=== PATIENT | female | born 1955 | race African-American/Black ===

== ENCOUNTER 2024-06-05 18:43 | Inpatient (IN) | payer MEDICARE, OTHER ==
[~2024-06-05] VITALS: Ht 167.6 cm; Wt 79.4 kg
[2024-06-05] MEDS ORDERED: ASPIRIN 81MG TABLET PO ONE (19:00)
[2024-06-05] MEDS: PYRIDOSTIGMINE BROMIDE 60MG TABLET PO STA (19:52)
[2024-06-05 20:26] LABS: D-DIMER 0.2 mg/L FEU (<0.50); PARTIAL THROMBOPLASTIN TIME 27.3 sec (23.4-31.0); PROTHROMBIN TIME 10.7 sec (9.6-11.0)
[2024-06-05 20:37] LABS: CHLORIDE 107 mEq/L (98-107); POTASSIUM 3.2 mEq/L (3.5-5.1); SODIUM 147 mEq/L (136-145)
[2024-06-05 20:38] LABS: CARBON DIOXIDE 33 mEq/L (21-32)
[2024-06-05 20:43] LABS: GLUCOSE 127 mg/dL (70-105); UREA NITROGEN BLOOD 17 mg/dL (9-23)
[2024-06-05 20:45] LABS: TROPONIN I HIGH SENSITIVITY 6 ng/L (3.0-34)
[2024-06-05 20:46] LABS: BASOPHILS % 0.8 % (0.0-2.0); HEMATOCRIT. 37.1 % (36.0-48.0); HEMOGLOBIN. 12.5 g/dL (12.0-16.0); MEAN CORPUSCULAR HEMOGLOBIN 28.9 pg (28.0-32.0); MEAN CORPUSCULAR HGB CONC 33.6 g/dL (31.0-37.0); MEAN PLATELET VOLUME 7.7 fl (7.4-10.4); MONOCYTES % 9.2 % (2.0-8.0); PLATELET 423 x1000/uL (130-400); RED BLOOD CELL COUNT 4.31 mill/uL (4.2-5.4); RED CELL DISTRIBUTION WIDTH 13.6 % (11.6-14.6); WHITE BLOOD COUNT 7.3 x1000/uL (4.5-11.0)
[2024-06-05] MEDS: ASPIRIN 81MG TABLET PO ONE (20:55)
[2024-06-05] MEDS: IMMUNE GLOBULIN IV SCH (20:55)
[2024-06-05] MEDS: POTASSIUM CHLORIDE 20MEQ/PACKET PO ONE (23:42)
[2024-06-06] VITALS (12 sets, daily range): BP systolic 134–188; BP diastolic 50–107; PULSE 88–122; RESP 16–29; TEMP 36.7–37.1; O2SAT 89–98
[2024-06-06] MEDS ORDERED: DEXTROSE 50% WATER 50ML SYRINGE IV PRN (02:00)
[2024-06-06] MEDS: CLONIDINE 0.1MG TABLET PO PRN (02:18)
[2024-06-06] MEDS ORDERED: METF-414 MT (03:25)
[2024-06-06] MEDS ORDERED: CLON0.1T MT (03:25)
[2024-06-06] MEDS ORDERED: AMLO2.5T45 MT (03:25)
[2024-06-06] MEDS ORDERED: PYRI60TA MT (03:25)
[2024-06-06] MEDS ORDERED: ATOR40TA70 MT (03:25)
[2024-06-06] MEDS ORDERED: LOSA25TA26 MT (03:25)
[2024-06-06] MEDS: KCL 10MEQ/50ML PREMIX 50 ML IV SCH (03:41)
[2024-06-06] MEDS ORDERED: NALOXONE HCL 0.4MG/ML VIAL IV PRN (04:45)
[2024-06-06] MEDS: MORPHINE SULFATE 2 MG/ML INJ (NOT FOR IM USE) IV PRN (04:53)
[2024-06-06] MEDS: METHYLPREDNISOLONE SOD SUCC 40MG/ML (ACT-O-VIAL) IV NR (05:40)
[2024-06-06] MEDS: PYRIDOSTIGMINE BROMIDE 60MG TABLET PO SCH (05:40)
[2024-06-06] MEDS: BLOOD SUGAR DIAGNOSTIC STRIP TEST SCH (05:53)
[2024-06-06] MEDS: INSULIN LISPRO 100 UNITS/ML SUBCUT SCH (05:56)
[2024-06-06] MEDS ORDERED: INSULIN LISPRO 100 UNITS/ML SUBCUT SCH (06:00)
[2024-06-06] MEDS ORDERED: BLOOD SUGAR DIAGNOSTIC STRIP TEST SCH (06:00)
[2024-06-06] MEDS: DEXT 5%/0.45% NACL 1000ML 1,000 ML IV SCH (06:20)
[2024-06-06 08:45] LABS: BG BASE EXCESS 2.3 mmol/L (-2.0-3.0); BG CARBOXYHEMOGLOBIN 0.6 % (0.5-1.5); BG DEOXYHEMOGLOBIN 4.6 % (0.0-5.0); BG FRACTION INSPIRED OXYGEN 21; BG HCO3 ACT 27.1 mmol/L (21.0-28.0); BG METHEMOGLOBIN 0.3 % (0.5-1.5); BG OXYGEN SATURATION 95.4 % (94.0-98.0); BG OXYHEMOGLOBIN 94.5 % (94.0-98.0); BG PCO2 43.1 mmHg (32.0-45.0); BG PH 7.417 (7.350-7.450); BG PO2 82.8 mmHg (83.0-108.0); BG SAMPLE SITE RIGHT BRACHIAL; BG TOTAL HEMOGLOBIN 12.1 g/dL (12.0-16.0); BG VENT MODE ROOM AIR
[2024-06-06] MEDS: PANTOPRAZOLE SODIUM 40 MG/VIAL IV SCH (10:34)
[2024-06-06] MEDS: AMLODIPINE 10MG TABLET PO SCH (11:59)
[2024-06-06] MEDS: ACETAMINOPHEN 325MG TABLET PO PRN (18:09)
[2024-06-07] VITALS (12 sets, daily range): BP systolic 117–185; BP diastolic 56–108; PULSE 71–135; RESP 11–29; TEMP 36.7–37.1; O2SAT 95–98
[2024-06-07] MEDS ORDERED: DIPHENHYDRAMINE 50MG/ML VIAL IV PRN (20:15)
[2024-06-07] MEDS: DIPHENHYDRAMINE 50MG/ML VIAL IV PRN (21:18)
[2024-06-07] MEDS: DEXT 5%/0.45% NACL 1000ML 1,000 ML IV SCH (21:18)
[2024-06-07] MEDS: HYDRALAZINE 20MG/ML VIAL IV PRN (22:46)
[2024-06-07 23:05] LABS: BG BASE EXCESS 2.9 mmol/L (-2.0-3.0); BG CARBOXYHEMOGLOBIN 0.4 % (0.5-1.5); BG DEOXYHEMOGLOBIN 1.1 % (0.0-5.0); BG FRACTION INSPIRED OXYGEN 28; BG HCO3 ACT 27.9 mmol/L (21.0-28.0); BG METHEMOGLOBIN 0.3 % (0.5-1.5); BG OXYGEN SATURATION 98.9 % (94.0-98.0); BG OXYHEMOGLOBIN 98.2 % (94.0-98.0); BG PCO2 44.5 mmHg (32.0-45.0); BG PH 7.415 (7.350-7.450); BG PO2 151.7 mmHg (83.0-108.0); BG SAMPLE SITE RIGHT RADIAL; BG TOTAL HEMOGLOBIN 11.9 g/dL (12.0-16.0); BG VENT MODE NASAL CANNULA
[2024-06-08] VITALS (20 sets, daily range): BP systolic 102–179; BP diastolic 71–153; PULSE 90–145; RESP 18–31; TEMP 36.4–36.9; O2SAT 96–100
[2024-06-08] MEDS: IPRATROPIUM/ALBUTEROL 0.5-3(2.5)MG/3ML NEB HHN SCH (01:38)
[2024-06-08 06:15] LABS: CHLORIDE 106 mEq/L (98-107); SODIUM 143 mEq/L (136-145)
[2024-06-08 06:16] LABS: CALCIUM 10.1 mg/dL (8.7-10.4); CARBON DIOXIDE 28 mEq/L (21-32)
[2024-06-08 06:21] LABS: CREATININE 0.9 mg/dL (0.6-1.0); GLUCOSE 142 mg/dL (70-105); UREA NITROGEN BLOOD 9 mg/dL (9-23)
[2024-06-08 06:30] LABS: BASOPHILS % 0.7 % (0.0-2.0); HEMATOCRIT. 35.3 % (36.0-48.0); HEMOGLOBIN. 12.1 g/dL (12.0-16.0); LYMPHOCYTES % 24.3 % (20.0-50.0); MEAN CORPUSCULAR HEMOGLOBIN 28.9 pg (28.0-32.0); MEAN CORPUSCULAR HGB CONC 34.3 g/dL (31.0-37.0); MEAN CORPUSCULAR VOLUME 84.5 fL (81.0-99.0); MEAN PLATELET VOLUME 7.7 fl (7.4-10.4); MONOCYTES % 7.1 % (2.0-8.0); NEUTROPHILS % 67.9 % (40.0-76.0); PLATELET 405 x1000/uL (130-400); RED BLOOD CELL COUNT 4.18 mill/uL (4.2-5.4); RED CELL DISTRIBUTION WIDTH 13.8 % (11.6-14.6); WHITE BLOOD COUNT 6.9 x1000/uL (4.5-11.0)
[2024-06-08 12:40] LABS: BG BASE EXCESS 3.2 mmol/L (-2.0-3.0); BG CARBOXYHEMOGLOBIN 0.2 % (0.5-1.5); BG DEOXYHEMOGLOBIN 2.1 % (0.0-5.0); BG FRACTION INSPIRED OXYGEN 28; BG HCO3 ACT 26.9 mmol/L (21.0-28.0); BG METHEMOGLOBIN 0.3 % (0.5-1.5); BG OXYGEN SATURATION 97.9 % (94.0-98.0); BG OXYHEMOGLOBIN 97.4 % (94.0-98.0); BG PCO2 37.9 mmHg (32.0-45.0); BG PH 7.469 (7.350-7.450); BG SAMPLE SITE RIGHT BRACHIAL; BG VENT MODE NASAL CANNULA
[2024-06-08 18:28] LABS: BASOPHILS % 0.7 % (0.0-2.0); HEMATOCRIT. 38.2 % (36.0-48.0); HEMOGLOBIN. 12.8 g/dL (12.0-16.0); LYMPHOCYTES % 24.5 % (20.0-50.0); MEAN CORPUSCULAR HEMOGLOBIN 28.9 pg (28.0-32.0); MEAN CORPUSCULAR HGB CONC 33.4 g/dL (31.0-37.0); MEAN CORPUSCULAR VOLUME 86.4 fL (81.0-99.0); MEAN PLATELET VOLUME 7.5 fl (7.4-10.4); MONOCYTES % 9.4 % (2.0-8.0); NEUTROPHILS % 65.4 % (40.0-76.0); PLATELET 515 x1000/uL (130-400); RED BLOOD CELL COUNT 4.42 mill/uL (4.2-5.4); RED CELL DISTRIBUTION WIDTH 13.8 % (11.6-14.6); WHITE BLOOD COUNT 9.1 x1000/uL (4.5-11.0)
[2024-06-08 18:33] LABS: CHLORIDE 106 mEq/L (98-107); SODIUM 145 mEq/L (136-145)
[2024-06-08 18:34] LABS: CARBON DIOXIDE 28 mEq/L (21-32)
[2024-06-08 18:35] LABS: CALCIUM 10.2 mg/dL (8.7-10.4)
[2024-06-08 18:39] LABS: GLUCOSE 156 mg/dL (70-105); UREA NITROGEN BLOOD 8 mg/dL (9-23)
[2024-06-08] MEDS: METHYLPREDNISOLONE 40MG/ML INJ IV STA (20:00)
[2024-06-08] MEDS: METHYLPREDNISOLONE SOD SUCC 500 MG in DEXT 5% WATER 100 ML IV NR (23:03)
[2024-06-09] VITALS (35 sets, daily range): BP systolic 113–157; BP diastolic 60–101; PULSE 89–128; RESP 13–32; TEMP 36.8–37.1; O2SAT 98–100
[2024-06-09] MEDS: METHYLPREDNISOLONE SOD SUCC 500 MG in DEXT 5% WATER 100 ML IV NR (01:58)
[2024-06-09 06:05] LABS: HEMATOCRIT. 34.8 % (36.0-48.0); MEAN CORPUSCULAR HEMOGLOBIN 29.8 pg (28.0-32.0); MEAN CORPUSCULAR HGB CONC 34.5 g/dL (31.0-37.0); MEAN CORPUSCULAR VOLUME 86.1 fL (81.0-99.0); MEAN PLATELET VOLUME 7.6 fl (7.4-10.4); PLATELET 469 x1000/uL (130-400); RED BLOOD CELL COUNT 4.04 mill/uL (4.2-5.4); RED CELL DISTRIBUTION WIDTH 13.8 % (11.6-14.6); WHITE BLOOD COUNT 7.9 x1000/uL (4.5-11.0)
[2024-06-09 06:18] LABS: POTASSIUM 2.9 mEq/L (3.5-5.1)
[2024-06-09 06:24] LABS: CREATININE 1.1 mg/dL (0.6-1.0)
[2024-06-09 07:30] LABS: DIFFERENTIAL COMMENT 1
[2024-06-09 08:25] LABS: BG CARBOXYHEMOGLOBIN 0.5 % (0.5-1.5); BG DEOXYHEMOGLOBIN 2.1 % (0.0-5.0); BG FRACTION INSPIRED OXYGEN 21; BG HCO3 ACT 24.5 mmol/L (21.0-28.0); BG METHEMOGLOBIN 0.3 % (0.5-1.5); BG OXYGEN SATURATION 97.9 % (94.0-98.0); BG OXYHEMOGLOBIN 97.1 % (94.0-98.0); BG PCO2 35.2 mmHg (32.0-45.0); BG PH 7.461 (7.350-7.450); BG PO2 101.6 mmHg (83.0-108.0); BG SAMPLE SITE RIGHT BRACHIAL; BG TOTAL HEMOGLOBIN 12.1 g/dL (12.0-16.0); BG VENT MODE ROOM AIR
[2024-06-09] MEDS: POTASSIUM CHLORIDE 20MEQ/PACKET PO SCH (08:51)
[2024-06-09 14:07] LABS: PLATELET ESTIMATE SLIGHTLY INCREASED
[2024-06-09] MEDS: INSULIN LISPRO 100 UNITS/ML SUBCUT SCH (18:34)
[2024-06-09] MEDS ORDERED: BLOOD SUGAR DIAGNOSTIC STRIP TEST SCH (20:30)
[2024-06-09] MEDS: BLOOD SUGAR DIAGNOSTIC STRIP TEST SCH (21:00)
[2024-06-10] VITALS (52 sets, daily range): BP systolic 109–163; BP diastolic 64–101; PULSE 81–134; RESP 12–29; TEMP 36.7–36.8; O2SAT 90–100
[2024-06-10 07:03] LABS: CHLORIDE 111 mEq/L (98-107); POTASSIUM 4.2 mEq/L (3.5-5.1); SODIUM 145 mEq/L (136-145)
[2024-06-10 07:04] LABS: CALCIUM 9.8 mg/dL (8.7-10.4); CARBON DIOXIDE 25 mEq/L (21-32)
[2024-06-10 07:05] LABS: BASOPHILS % 0.1 % (0.0-2.0); HEMATOCRIT. 31.2 % (36.0-48.0); HEMOGLOBIN. 10.4 g/dL (12.0-16.0); LYMPHOCYTES % 7.9 % (20.0-50.0); MEAN CORPUSCULAR HEMOGLOBIN 29.1 pg (28.0-32.0); MEAN CORPUSCULAR HGB CONC 33.5 g/dL (31.0-37.0); MEAN CORPUSCULAR VOLUME 86.9 fL (81.0-99.0); MEAN PLATELET VOLUME 7.9 fl (7.4-10.4); MONOCYTES % 7.4 % (2.0-8.0); NEUTROPHILS % 84.6 % (40.0-76.0); PLATELET 435 x1000/uL (130-400); RED BLOOD CELL COUNT 3.59 mill/uL (4.2-5.4); RED CELL DISTRIBUTION WIDTH 14.2 % (11.6-14.6); WHITE BLOOD COUNT 12.9 x1000/uL (4.5-11.0)
[2024-06-10 07:09] LABS: GLUCOSE 208 mg/dL (70-105); UREA NITROGEN BLOOD 16 mg/dL (9-23)
[2024-06-10] MEDS: INSULIN GLARGINE 100 UNITS/ML SUBCUT SCH (10:34)
[2024-06-10] MEDS: METHYLPREDNISOLONE SOD SUCC 40MG/ML (ACT-O-VIAL) IV NR (10:35)
[2024-06-11] VITALS (65 sets, daily range): BP systolic 113–156; BP diastolic 71–107; PULSE 75–128; RESP 12–27; TEMP 36.4–37.1; O2SAT 86–100
[2024-06-11 07:18] LABS: BASOPHILS % 0.2 % (0.0-2.0); HEMOGLOBIN. 11.7 g/dL (12.0-16.0); LYMPHOCYTES % 18.8 % (20.0-50.0); MEAN CORPUSCULAR HEMOGLOBIN 28.8 pg (28.0-32.0); MEAN CORPUSCULAR HGB CONC 33.4 g/dL (31.0-37.0); MEAN CORPUSCULAR VOLUME 86.2 fL (81.0-99.0); MEAN PLATELET VOLUME 7.7 fl (7.4-10.4); MONOCYTES % 7.2 % (2.0-8.0); NEUTROPHILS % 73.8 % (40.0-76.0); PLATELET 483 x1000/uL (130-400); RED BLOOD CELL COUNT 4.07 mill/uL (4.2-5.4); RED CELL DISTRIBUTION WIDTH 14.2 % (11.6-14.6); WHITE BLOOD COUNT 13.4 x1000/uL (4.5-11.0)
[2024-06-11 07:26] LABS: CHLORIDE 110 mEq/L (98-107); POTASSIUM 3.8 mEq/L (3.5-5.1); SODIUM 147 mEq/L (136-145)
[2024-06-11 07:27] LABS: CARBON DIOXIDE 30 mEq/L (21-32)
[2024-06-11 07:28] LABS: CALCIUM 9.6 mg/dL (8.7-10.4)
[2024-06-11 07:32] LABS: GLUCOSE 132 mg/dL (70-105)
[2024-06-11 07:33] LABS: UREA NITROGEN BLOOD 18 mg/dL (9-23)
[2024-06-12] VITALS (11 sets, daily range): BP systolic 125–165; BP diastolic 67–94; PULSE 72–128; RESP 13–26; TEMP 36.6–37; O2SAT 94–100
[2024-06-12] MEDS ORDERED: DILTIAZEM HCL 5MG/ML 5ML VIAL IV NR (16:45)
== END 2024-06-13 00:05 | disposition short-term general hospital (02) | DRG 56 ==
LOC: ER 18:43 → 5EST 22:13 → CVICU 06-08 16:55 → 3WST 06-11 18:38
PROVIDERS: ADMIT Internal Medicine; ATTEND Internal Medicine
DX: G70.01 Myasthenia gravis with (acute) exacerbation (principal); J96.20 Acute and chronic respiratory failure, unspecified whether with hypoxia or hypercapnia; E87.6 Hypokalemia; E11.65 Type 2 diabetes mellitus with hyperglycemia; I10 Essential (primary) hypertension; Z86.73 Personal history of transient ischemic attack (TIA), and cerebral infarction without residual deficits
CPT/HCPCS: 36415; 36600; 71045; 74230; 80048; 82375; 82805; 82962; 83036; 83519; 83735; 83880; 84484; 85025; 85379; 92523; 92610; 92611; 93005; 94070; 94640; 94660; 94664; 98960; 99285; A4606; J0360; J1200; J1459; J1815; J2270; J2470; J2920; J2930; J3480; J7060; J7070